=== PATIENT | female | born 1965 | race Caucasian/White ===

== ENCOUNTER → 2017-07-28 | Outpatient (CLI) | payer BC ==
--- NOTE | 2017-07-28 16:57 | RADIOLOGY IMAGING REPORT ---
FACILITY: [facility] [place] PATIENT NAME: Oswaldo Sapp : 1965 MR: [id number] V: [id number] EXAM DATE: ORDERING PHYSICIAN: EUGENIA COE TECHNOLOGIST: Location: [facility] [place] Patient: Oswaldo Sapp : 1965 Visit/Account:[id number] Date of Sevice: 07/28/2017 EXAMINATION: CT of the Paranasal Sinuses HISTORY: Left facial pain. TECHNIQUE: Contiguous axial images were obtained through the paranasal sinuses without intravenous c ontrast administration. Coronal and sagittal reformatted images were obtained from the axial source d miranda. One of the following dose optimization techniques was utilized in the performance of this exam: Autom ated exposure control; adjustment of the mA and/or kV according to the patient's size; or use of an i terative reconstruction technique. Specific details can be referenced in the facility's radiology C T exam operational policy. COMPARISON: None. FINDINGS: Maxillary sinuses: The right maxillary sinus is clear. Near complete opacification of the left maxill cony sinus with mildly thickened meléndez. Small periapical cyst surrounding the root of the left maxilla ry 2nd molar extending up into the maxillary sinus. There is also a root canal of this tooth. Frontal sinuses: Mild mucosal thickening in the left frontal sinus drainage pathway. Otherwise negat tate. Ethmoid air cells: Mild mucosal thickening in the left anterior ethmoid air cells. Sphenoid sinuses: Dominant right sphenoid sinus. Intersphenoid sinus septum inserts anterior to the l eft carotid canal. Ostiomeatal units: Partially opacified left ostiomeatal unit. Nasal septum / nasal cavity: Celine bullosa of the right middle turbinate with leftward nasal septal deviation. Orbits: Negative. Visualized intracranial contents/soft tissues: Negative. TMJs: Negative. IMPRESSION: Left ostiomeatal unit pattern of sinusitis, most severely affecting the left maxillary sinus. Celine bullosa of the right middle turbinate with leftward nasal septal deviation. Report Dictated By: Alexis Mills MD at 07/28/2017 4:46 PM Report E-Signed By: Alexis Mills MD at 07/28/2017 4:53 PM WSN:[id number]
== END ==
LOC: CT 15:39
PROVIDERS: ATTEND Otolaryngology
DX: J34.9 Unspecified disorder of nose and nasal sinuses (principal)
CPT/HCPCS: 70486